=== PATIENT | male | born 1980 | race Caucasian/White ===

== ENCOUNTER → 2020-12-16 | Outpatient (CLI) | payer BC, OTHER ==
[~2020-12-16] MED LIST: BUTALB-ACETAMI1 EAC1 PO; NORCO 5-325 TA1 EACH PO; PHENERGAN 25 MG25 M1 PO
== END ==
LOC: KOH-I 10:31
DX: M25.511 Pain in right shoulder (principal)
CPT/HCPCS: 73030

== ENCOUNTER 2021-02-15 15:29 | Emergency (ER) | payer BC ==
[~2021-02-15 15:29] MED LIST changes: -BUTALB-ACETAMI1 EAC1 PO; -PHENERGAN 25 MG25 M1 PO
[2021-02-15 16:34] LABS: HEMOGLOBIN 16.4 gm/dl (14.0-17.5); RED BLOOD COUNT 5.08 M/UL (4.20-5.50); WHITE BLOOD COUNT 5.4 K/UL (4.5-11.0)
[2021-02-15 16:54] LABS: BUN/CREATININE RATIO 24 (0-10)
[2021-02-15] MEDS ORDERED: BUTALB-ACETAMI1 EAC1 PO (21:45)
[2021-02-15] MEDS ORDERED: PHENERGAN 25 MG25 M1 PO (21:47)
== END 2021-02-15 22:00 | disposition home or self-care (01) ==
LOC: ER1 15:29
PROVIDERS: Physician Assistant
DX: R51.9 Headache, unspecified (principal); R11.2 Nausea with vomiting, unspecified; M54.2 Cervicalgia; Z88.0 Allergy status to penicillin; Z90.89 Acquired absence of other organs
CPT/HCPCS: 70450; 70496; 70498; 80053; 85025; 96374; 96375; 99284; J0780; J1200; J1885; J2550; Q9967